=== PATIENT | male | born 1975 | race Caucasian/White ===

== ENCOUNTER 2017-03-25 14:15 | Emergency (ER) | payer OTHER, SELFPAY ==
--- NOTE | 2017-03-25 | CT_ITS ---
CT head/brain wo con HISTORY: ITS.REASON: NUMBNESS OF RIGHT SIDE ORDERING PHYSICIAN: Aquilino Gusman MD PATIENT AGE: 41 years COMPARISON: None TECHNIQUE: Axial images obtained without contrast. Brain and bone windows reviewed. FINDINGS: No midline shift, mass effect, intracranial hemorrhage, hydrocephalus, or extra-axial fluid collection is evident. The calvarium has an unremarkable appearance. No mastoid effusion. There is an air-fluid level in left maxillary sinus and moderate severe mucosal thickening of the right maxillary sinus with an air-fluid level. There is thickening of the sphenoid sinus as well and mild right ethmoid sinus mucosal thickening... IMPRESSION: 1. No acute intracranial finding. 2. Sinusitis
[2017-03-25 14:16] VITALS: BP 153/89; PULSE 81; RESP 14; TEMP 36.7; O2SAT 95; BMI 46.7
[2017-03-25 14:17] VITALS: BP 125/70; PULSE 85; RESP 18; TEMP 36.7; O2SAT 98; BMI 26.5
--- NOTE | 2017-03-25 14:55 | XR_ITS ---
XR chest 2V HISTORY: ITS.REASON: chest pain ORDERING PHYSICIAN: Aquilino Gusman MD PATIENT AGE: 41 years COMPARISON: None available FINDINGS: The cardiomediastinal silhouette and pulmonary vascularity are within normal limits. The lungs are clear without infiltrates, suspicious nodules, or pleural effusions. There is mild thoracic kyphosis with multilevel change and minimal wedging of T6, T7, T8, and T9 which may be chronic. IMPRESSION: 1. No acute finding. 2. Probable chronic wedging of T6-T9 with kyphosis
--- NOTE | 2017-03-25 15:04 | [facility].EDCP ---
ED Disposition Clinical Impression: Chest pain, Exertional dyspnea, Numbness, Atypical chest pain, Hypertension, Left against medical advice Disposition: Still a Patient Condition on Discharge: Fair Additional Instructions: daily asa [address] Deshpande in AM at 8:30 Referrals: Michael Deshpande MD [Staff Physician] - - Critical Care Critical Care Time: No Attestation: On , the high probability of a clinically significant, sudden or life threatening deterioration of the following system(s) required my full and direct attention, intervention and personal management. The time I documented below is in addition to time spent performing reported procedures but includes the following listed in this critical care notation. Medical Decision Making - Medical Records Medical records reviewed: Yes: I reviewed the patient's medical records. Vital Signs: 03/25/17 14:16 03/25/17 14:17 Temperature 98.1 F 98.1 F Temperature Source Oral Oral Pulse Rate [Left Radial] 81 Pulse Rate [Right Brachial] 85 Respiratory Rate 14 18 Blood Pressure [Left Arm] 153/89 Blood Pressure [Right Arm] 125/70 Blood Pressure Mean [Left Arm] 110 Blood Pressure Mean [Right Arm] 88 Blood Pressure Source [Left Arm] Automatic Cuff Blood Pressure Source [Right Arm] Automatic Cuff Blood Pressure Position [Left Arm] Sitting Blood Pressure Position [Right Arm] Sitting 02 Sat by Pulse Oximetry 95 98 Oxygen Delivery Method Room Air Room Air - Lab Data Lab Results 03/25/17 14:30: WBC 5.9, RBC 4.78, Hgb 14.1, Hct 42.7, MCV 89.3, MCH 29.5, MCHC 33.1, RDW 13.4, Plt Count 213, MPV 7.8, Neut % (Auto) 58.0, Lymph % (Auto) 28.2, Nash % (Auto) 7.7, Eos % (Auto) 5.2, Baso % (Auto) 0.8, Neut # (Auto) 3.4, Lymph # (Auto) 1.7, Nash # (Auto) 0.5, Eos # (Auto) 0.3, Baso # (Auto) 0.1 03/25/17 14:30: D-Dimer 220 03/25/17 14:30: Sodium 138, Potassium 3.7, Chloride 102, Carbon Dioxide 30, Anion Gap 9.7, BUN 8, Creatinine 0.89, Estimated Creat Clear 104, Estimated GFR 94, Est GFR ( Amer) 113, Glucose 83, Calcium 8.1 L, Total Bilirubin 0.4, AST 27, ALT 36, Alkaline Phosphatase 67, Total Creatine Kinase 56, CK-MB (CK-2) 0.7, CK-MB (CK-2) Rel Index 1.3, Troponin I < 0.02, Total Protein 8.7 H, Albumin 2.9 L, Globulin 5.8 H, Albumin/Globulin Ratio 0.5 L 03/25/17 14:30: B-Natriuretic Peptide 17 Result diagrams: 03/25/17 14:30 03/25/17 14:30 Orders (Tests/Meds): ED MEDICATIONS Discontinued Medications Generic Name Dose Route Start Last Admin Trade Name Freq PRN Reason Stop Dose Admin Aspirin 325 mg 03/25/17 15:25 03/25/17 15:55 Aspirin Ec 325mg Tablet PO 03/25/17 15:26 325 mg ONCE ONE Administration ORDERS Category Date Time Status CT head/brain wo con Routine Cat Scan 03/25/17 Taken XR chest 2V Stat Exams 03/25/17 14:55 Taken ECG Request by /Nse Stat Y 03/25/17 14:55 Ordered - Radiology Data #1 Image(s): Chest Image Reviewed: Yes I reviewed the patient's radiology image Preliminary Findings: Normal/NAD - ECG Data Tracing #1 Normal sinus rhythm 75/min no acute findings ECG initial impression date: 03/25/17 ECG initial impression time: 15:08 - Bridger Inquiry Pt receiving controlled substance: No Bridger was queried for this patient: No Medical Decision Making Narrative: The patient refused to be admitted. I called Dr. Deshpande and he can see him tomorrow at 830. Before I finish my notes patient left the ER. Chest Pain HPI - General Chief Complaint: Chest Pain Stated Complaint: CHEST PAIN Mode of Arrival: Ambulatory Limitations: No Limitations Description of Symptoms (Recalled from ER Triage Doc. by RN): THINKS SHE HAS THE FLU, NAUSEA VOMITING,GERD, POSSIBLY COUGH A ND CONGESTION - History of Present Illness HPI narrative: 31 years old white male with history of hypertension and tobacco use. Today at 8 am, he developed numbness of the right lower extremity followed by
--- NOTE | 2017-03-25 15:07 | ED_ITS ---
ED Disposition Clinical Impression: Chest pain, Exertional dyspnea, Numbness, Atypical chest pain, Hypertension, Left against medical advice Disposition: Still a Patient Condition on Discharge: Fair Additional Instructions: daily asa [address] Deshpande in AM at 8:30 Referrals: Michael Deshpande MD [Staff Physician] - - Critical Care Critical Care Time: No Attestation: On , the high probability of a clinically significant, sudden or life threatening deterioration of the following system(s) required my full and direct attention, intervention and personal management. The time I documented below is in addition to time spent performing reported procedures but includes the following listed in this critical care notation. Medical Decision Making - Medical Records Medical records reviewed: Yes: I reviewed the patient's medical records. Vital Signs: 03/25/17 14:16 03/25/17 14:17 Temperature 98.1 F 98.1 F Temperature Source Oral Oral Pulse Rate [Left Radial] 81 Pulse Rate [Right Brachial] 85 Respiratory Rate 14 18 Blood Pressure [Left Arm] 153/89 Blood Pressure [Right Arm] 125/70 Blood Pressure Mean [Left Arm] 110 Blood Pressure Mean [Right Arm] 88 Blood Pressure Source [Left Arm] Automatic Cuff Blood Pressure Source [Right Arm] Automatic Cuff Blood Pressure Position [Left Arm] Sitting Blood Pressure Position [Right Arm] Sitting 02 Sat by Pulse Oximetry 95 98 Oxygen Delivery Method Room Air Room Air - Lab Data Lab Results 03/25/17 14:30: WBC 5.9, RBC 4.78, Hgb 14.1, Hct 42.7, MCV 89.3, MCH 29.5, MCHC 33.1, RDW 13.4, Plt Count 213, MPV 7.8, Neut % (Auto) 58.0, Lymph % (Auto) 28.2 , [place] % (Auto) 7.7, Eos % (Auto) 5.2, Baso % (Auto) 0.8, Neut # (Auto) 3.4, Lymph # (Auto) 1.7, [place] # (Auto) 0.5, Eos # (Auto) 0.3, Baso # (Auto) 0.1 03/25/17 14:30: D-Dimer 220 03/25/17 14:30: Sodium 138, Potassium 3.7, Chloride 102, Carbon Dioxide 30, Anion Gap 9.7, BUN 8, Creatinine 0.89, Estimated Creat Clear 104, Estimated GFR 94, Est GFR ( Amer) 113, Glucose 83, Calcium 8.1 L, Total Bilirubin 0.4, AST 27, ALT 36, Alkaline Phosphatase 67, Total Creatine Kinase 56, CK-MB (CK-2) 0.7, CK-MB (CK-2) Rel Index 1.3, Troponin I < 0.02, Total Protein 8.7 H, Albumin 2.9 L, Globulin 5.8 H, Albumin/Globulin Ratio 0.5 L 03/25/17 14:30: B-Natriuretic Peptide 17 Result diagrams: 03/25/17 14:30 03/25/17 14:30 Orders (Tests/Meds): ED MEDICATIONS Discontinued Medications Generic Name Dose Route Start Last Admin Trade Name Freq PRN Reason Stop Dose Admin Aspirin 325 mg 03/25/17 15:25 03/25/17 15:55 Aspirin Ec 325mg Tablet PO 03/25/17 15:26 325 mg ONCE ONE Administration ORDERS Category Date Time Status CT head/brain wo con Routine Cat Scan 03/25/17 Taken XR chest 2V Stat Exams 03/25/17 14:55 Taken ECG Request by /Nse Stat Y 03/25/17 14:55 Ordered - Radiology Data #1 Image(s): Chest Image Reviewed: Yes I reviewed the patient's radiology image Preliminary Findings: Normal/NAD - ECG Data Tracing #1 Normal sinus rhythm 75/min no acute findings ECG initial impression date: 03/25/17 ECG initial impression time: 15:08 - Bridger Inquiry Pt receiving controlled substance: No Bridger was queried for this patient: No
[2017-03-25 15:12] LABS: Basophils # 0.1 K/mm3 (0-0.2); Basophils % 0.8 % (0.1-2.0); Eosinophils # 0.3 K/mm3 (0.0-0.4); Eosinophils % 5.2 % (0.1-12.0); Hematocrit 42.7 % (42.0-52.0); Hemoglobin 14.1 g/dL (14.1-18.0); Lymphocytes # 1.7 K/mm3 (0.7-4.5); Lymphocytes % 28.2 K/mm3 (10-50); Mean Corpuscular HGB Conc 33.1 g/dL (31.8-35.4); Mean Corpuscular Hemoglobin 29.5 pg (27.0-31.2); Mean Corpuscular Volume 89.3 fl (80-94); Mean Platelet Volume 7.8 fl (7.4-10.4); Monocytes # 0.5 K/mm3 (0.1-1.0); Monocytes % 7.7 % (1.7-9.3); Neutrophils # 3.4 K/mm3 (1.8-7.8); Platelet Count 213 K/mm3 (142-424); Red Blood Count 4.78 M/mm3 (4.60-6.20); Red Cell Distribution Width 13.4 % (11.5-17.5); White Blood Count 5.9 K/mm3 (4.8-10.8)
[2017-03-25 15:25] LABS: D-Dimer 220 (0-400)
[2017-03-25 15:32] LABS: Alanine Aminotransferase 36 U/L (12-78); Albumin Level 2.9 gm/dL (3.4-5.0); Albumin/Globulin Ratio 0.5 (1.1-1.8); Alkaline Phosphatase 67 U/L (46-116); Anion Gap 9.7 mEq/L (5-15); Aspartate Amino Transferase 27 U/L (15-37); Bilirubin,Total 0.4 mg/dL (0.2-1.0); Blood Urea Nitrogen 8 mg/dL (7-18); CKMB Relative Index 1.3 U/L (0-4.0); Calcium 8.1 mg/dL (8.5-10.1); Carbon Dioxide 30 mmol/L (21.0-32.0); Chloride 102 mmol/L (98-107); Creatine Kinase 56 U/L (39-308); Creatine Kinase MB 0.7 mg/ml (0.0-3.6); Creatinine Clearance Estimated 104 mL/min (0-300); Creatinine,Serum 0.89 mg/dL (0.70-1.30); Estimated Glomerular Filt Rate 94 ml/min (>60); GFR (African American) 113 ML/MIN (>60); Globulin 5.8 gm/dl (1.3-3.2); Potassium 3.7 mmoL/L (3.5-5.1); Sodium 138 mmol/L (136-145); Total Protein,Serum 8.7 gm/dL (6.4-8.2); Troponin I < 0.02 ng/ml (0.00-0.06)
[2017-03-25 15:43] LABS: Glucose 83 mg/dL (74-106)
[2017-03-25 18:09] VITALS: BP 125/80; PULSE 89; RESP 24; TEMP 36.8; O2SAT 98
== END 2017-03-25 18:09 | disposition still patient (30) ==
PROVIDERS: Emergency Provider Emergency Medicine
DX: R07.9 Chest pain, unspecified (principal); K21.9 Gastro-esophageal reflux disease without esophagitis; I10 Essential (primary) hypertension; F17.210 Nicotine dependence, cigarettes, uncomplicated
CPT/HCPCS: 70450; 71046; 80053; 82550; 82553; 83880; 84484; 85025; 85378; 93005; 99282